=== PATIENT | female | born 1990 | race Asian ===

== ENCOUNTER 2019-01-11 11:29 | Emergency (ER) | payer OTHER ==
--- NOTE | 2019-01-11 12:58 | ED Physician Documentation ---
History of Present Illness - Stated complaint Stated Complaint: HEAD INJ - Chief complaint Chief Complaint: Neuro - Additonal information Additional information: This is a 28-year-old female who presents with a headache and light sensitivity after a fall. Patient was drinking on Friday night, and she fell backwards hitting her head on a glass soap schaeffer, she did not lose consciousness, but did have immediate pain in the back of her head. She does not remember much of the event because she was drinking, but her partner is with her was with her and states that she had no vomiting, no LOC, was acting similar after the fall as before the fall. The next morning she did have a headache, and she vomited once, but they were not sure if this is due to a hangover or from the impact to her head. She denies any weakness, numbness, and her headache has improved from severe yesterday to moderate today. Given the persistence of her headache, she presents today for evaluation. She does not take any blood thinners. They went to a concert last night, and she states that she felt slightly worse after the concert. She did have some mild light sensitivity today, but no other vision changes Review of Systems Constitutional: denies: Fever Eyes: denies: Loss of vision GI: reports: Vomiting (Yesterday x 1) Skin: denies: Rash Neurologic: reports: Head injury. denies: Focal weakness, LOC PD PAST MEDICAL HISTORY - Past Medical History Past Medical History: No Cardiovascular: None Respiratory: None Neuro: None Endocrine/Autoimmune: None GI: None DIRECTOR OF REVENUE: None : None HEENT: None Psych: None Musculoskeletal: None Derm: None - Past Surgical History Past Surgical History: No - Allergies Allergies/Adverse Reactions: Allergies Allergy/AdvReac Type Severity Reaction Status Date / Time No Known Drug Allergies Allergy Verified 01/11/19 11:46 - Social History Does the pt smoke?: Yes Smoking Status: Current some day smoker Does the pt drink ETOH?: Yes Does the pt have substance abuse?: No - Immunizations Immunizations are current?: Yes - POLST Patient has POLST: No PD ED PE NORMAL - Vitals Vital signs reviewed: Yes - General General: Alert and oriented X 3, No acute distress - HEENT HEENT: PERRL, Other (2.5 cm diameter contusion on the posterior right occiput of the skull, mildly tender to palpation without laceration or abrasion. Head is otherwise atraumatic, no midline neck tenderness.) - Neck Neck: Supple, no meningeal sign - Cardiac Cardiac: RRR, No murmur - Respiratory Respiratory: No respiratory distress - Abdomen Abdomen: Soft, Non distended - Derm Derm: Warm and dry - Extremities Extremities: No deformity - Neuro Neuro: Alert and oriented X 3, leather roller 2-12 intact, No motor deficit, No sensory deficit, Normal speech - Psych Psych: Normal mood, Normal affect Results - Vitals Vitals: Oxygen O2 Source Room air PD MEDICAL DECISION MAKING - ED course Complexity details: considered differential (Concussion, contusion, ICH, fracture) ED course: On exam patient is well appearing with no neurologic abnormalities. I discussed with patient the options of CT versus careful observation, overall I feel she is low risk for a head bleed, and her headache, her symptoms are most consistent with concussion, which was no doubt compounded by drinking and going to a concert, however she did have one episode of vomiting, and given her symptoms, CT scan is reasonable and is my recommendation in this care. After in-depth discussion of the risks and benefits of both, patient first elected to undergo the CT, and it was ordered. After thinking about it further she changed her mind and declined the CT. I discussed with patient that if she develops vision changes, weakness or numbness, worsening or more severe headache, she should return for repeat evaluation and CT scan. She understands that potential for missed head bleed/intracranial pathology, and that undiagnosed head bleeds are serious and can lead to life-threatening worsening very quickly. I also discussed concussion care and close PCP follow up. Patient agrees and was discharged in the care of her partner. Departure - Departure Disposition: 01 Home, Self Care Clinical Impression: Headache Qualifiers: Headache type: unspecified Headache chronicity pattern: acute headache Intractability: intractable Qualified Code(s): R51 - Headache Condition: Good Instructions: ED Concussion Comments: You were seen today for head injury. At this time your neurologic exam appears normal, and you most likely have a concussion. There is a small chance that you may have a more serious head injury - if you develop any worsening headache, vision changes, weakness or numbness, confusion, or any other concerning symptoms please return to the emergency department promptly for a CT scan. Please avoid stimulating activity for the next 24 hours, and if you are having persistent symptoms after 1 week, you will need to follow-up with your primary care provider or neurologist for further evaluation. Discharge Date/Time: 01/11/19 14:06
[2019-01-11 14:01] VITALS: BP 98/75
== END 2019-01-11 14:06 | disposition home or self-care (01) ==
LOC: ED 11:29
DX: S00.03XA Contusion of scalp, initial encounter (principal); S09.90XA Unspecified injury of head, initial encounter; W19.XXXA Unspecified fall, initial encounter; W22.8XXA Striking against or struck by other objects, initial encounter; R51 Headache; F17.200 Nicotine dependence, unspecified, uncomplicated
CPT/HCPCS: 99284